=== PATIENT | female | born 1995 | race Caucasian/White ===

== ENCOUNTER 2019-03-03 14:15 | Emergency (ER) | payer BC ==
[2019-03-03 14:26] VITALS: BP 107/89
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
[2019-03-03 16:08] LABS: RAPID STREP SCREEN Negative (Negative)
[2019-03-03] MEDS ORDERED: CHERRY SYRUP 10 ML UDC PO ONE (16:21)
[2019-03-03] MEDS ORDERED: DEXAMETHASONE 10 MG/ML VIAL PO STA (16:21)
[2019-03-03 16:25] LABS: BILIRUBIN,URINE NEGATIVE (NEGATIVE); CLARITY,URINE CLEAR (CLEAR); GLUCOSE, URINE (UA) NEGATIVE (NEGATIVE); KETONES,URINE (UA) NEGATIVE (NEGATIVE); LEUKOCYTE ESTERASE, URINE NEGATIVE (NEGATIVE); NITRITE,URINE NEGATIVE (NEGATIVE); OCCULT BLOOD,URINE NEGATIVE (NEGATIVE); PROTEIN,URINE NEGATIVE (NEGATIVE); UROBILINOGEN,URINE 0.2 (NORMAL) E.U./dL (NORMAL)
[2019-03-03 16:27] LABS: HCG UR QUAL NEGATIVE
== END 2019-03-03 16:38 | disposition home or self-care (01) ==
LOC: ED 14:15
DX: J06.9 Acute upper respiratory infection, unspecified (principal)
CPT/HCPCS: 81003; 81025; 87070; 87275; 87276; 87430; 99283; 99284; A9270; 81001; 87086